=== PATIENT | male | born 1945 | race Caucasian/White ===

== ENCOUNTER → 2018-01-13 | Outpatient (CLI) | payer OTHER | END | disposition home or self-care (01) | LOC: PCVCCLINIC 12:30 | DX: I11.0 Hypertensive heart disease with heart failure (principal); I50.20 Unspecified systolic (congestive) heart failure; I42.0 Dilated cardiomyopathy; Z79.82 Long term (current) use of aspirin; Z79.899 Other long term (current) drug therapy; Z79.4 Long term (current) use of insulin | CPT/HCPCS: 80061; 93005; G0463 ==

== ENCOUNTER → 2018-07-14 | Outpatient (CLI) | payer OTHER | END | disposition home or self-care (01) | LOC: PCVCCLINIC 11:20 | PROVIDERS: ATTEND Internal Medicine | DX: I42.0 Dilated cardiomyopathy (principal); I11.0 Hypertensive heart disease with heart failure; I50.20 Unspecified systolic (congestive) heart failure; E78.5 Hyperlipidemia, unspecified; Z79.82 Long term (current) use of aspirin; Z79.4 Long term (current) use of insulin | CPT/HCPCS: 80061; 93005; G0463 ==

== ENCOUNTER → 2018-07-19 | Outpatient (CLI) | payer OTHER ==
--- NOTE | 2018-07-20 10:18 | PCVCIMAG ---
APPROVED REPORT Study performed: 07/19/2018 10:35:58 EXAM: Comprehensive 2D, Doppler, and color-flow Echocardiogram Patient Location: Echo lab Room #: 2Status: routine BSA: 2.46 HR: 64 bpmBP: 122/56 mmHg Rhythm: NSR Other Information Study Quality: Good Risk Factors: Cardiac Risk Factors: HTN, Hyperlipidemia, DM Indications Congestive Heart Failure Diabetes Dizziness and Vertigo Cardiomyopathy CHERRY, RENAL FAILURE 2D Dimensions IVSd: 12.00 (7-11mm)LVOT Diam: 23.70 (18-24mm) LVDd: 47.37 mm PWd: 10.27 (7-11mm)Ascending Ao: 35.50 (22-36mm) LVDs: 31.33 (25-40mm) Left Atrium: 41.81 (27-40mm) Aortic Root: 34.09 mm LV Single Plane 4CH: 56.04 % LV Single Plane 2CH: 51.03 % Biplane EF: 56.3 % Volumes Left Atrial Volume (Systole) Single Plane 4CH: 84.45 mLSingle Plane 2CH: 85.06 mL Biplane LA Volume: 85.00 mLLA ESV Index: 35.00 mL/m2 Aortic Valve AoV Peak Amadeo.: 1.76 m/s AO Peak Gr.: 12.37 mmHgLVOT Max P.46 mmHg LVOT Max V: 1.06 m/s MERRILL Vmax: 2.65 cm2 Mitral Valve E/A Ratio: 1.1 MV Decel. Time: 244.92 ms MV E Max Amadeo.: 0.78 m/s MV A Amadeo.: 0.73 m/s IVRT: 89.97 ms TDI E/Lateral E': 8.67E/Medial E': 11.14 Medial E' Amadeo.: 0.07 m/s Lateral E' Amadeo.: 0.09 m/s Pulmonary Valve PV Peak Amadeo.: 1.11 m/sPV Peak Gr.: 4.94 mmHg Pulmonary Vein P Vein S: 0.86 m/sP Vein A: 0.34 m/s P Vein D: 0.47 m/sP Vein A Dur.: 96.9 msec P Vein S/D Ratio: 1.83 Tricuspid Valve TV Vmax: 0.71 m/s Left Ventricle The left ventricle is normal size. There is normal LV segmental wall motion. Mild septal hypertrophy The left ventricular systolic function is normal. The left ventricular ejection fraction is within the normal range. LVEF is 55-60%. The left ventricular diastolic function is normal. Right Ventricle The right ventricle is normal size. The right ventricular systolic function is normal. Atria The left atrium size is normal. The right atrium size is normal. Aortic Valve Aortic valve is trileaflet. The aortic valve is normal in structure. No aortic regurgitation is present. There is no aortic valvular stenosis. Mitral Valve The mitral valve is normal in structure. There is no mitral valve regurgitation noted. No evidence of mitral valve stenosis. Tricuspid Valve The tricuspid valve is normal in structure. There is no tricuspid valve regurgitation noted. Pulmonic Valve The pulmonary valve is normal in structure. Trace pulmonic regurgitation. Great Vessels The aortic root is normal in size. The ascending aorta is normal in size. Aortic arch is normal in caliber. IVC is normal in size and collapses >50% with inspiration. Pericardium There is no pericardial effusion. There is no pleural effusion. <Conclusion> The left ventricle is normal size. LVEF is 55-60%. Aortic valve is trileaflet. The aortic valve is normal in structure. The mitral valve is normal in structure. The tricuspid valve is normal in structure. The pulmonary valve is normal in structure. Trace pulmonic regurgitation. The ascending aorta is normal in size. Aortic arch is normal in caliber. There is no pericardial effusion.
== END | disposition home or self-care (01) ==
LOC: PCVCIMAG 11:49
PROVIDERS: ATTEND Internal Medicine
DX: I11.0 Hypertensive heart disease with heart failure (principal); I50.9 Heart failure, unspecified; I42.0 Dilated cardiomyopathy
CPT/HCPCS: 93306